=== PATIENT | female | born 1955 | race Two or more races ===

== ENCOUNTER 2019-06-07 07:05 | Day surgery (SDC) | payer OTHER | END 2019-06-07 12:12 | disposition home or self-care (01) | LOC: AMB-ENDOS 07:05 | DX: K29.50 Unspecified chronic gastritis without bleeding (principal); K44.9 Diaphragmatic hernia without obstruction or gangrene ==

== ENCOUNTER 2019-08-07 10:57 | Emergency (ER) | payer OTHER ==
[~2019-08-07] VITALS: Ht 162.6 cm; Wt 99.8 kg
== END 2019-08-07 18:20 | disposition home or self-care (01) ==
LOC: ER 10:57
DX: R10.32 Left lower quadrant pain (principal)